=== PATIENT | male | born 1995 | race Caucasian/White ===

== ENCOUNTER → 2022-10-01 08:43 | Outpatient (CLI) | payer OTHER, SELFPAY ==
--- NOTE | 2022-10-01 | DI.ECHO.S_ITS ---
[facility] +---------+ : : [address] : [place] : : : : [id number] : : : : Phone: [phone]---------+ Echocardiogram Report + + :Name: SCOTT CHARLES Study Date: 10/01/2022 Height: 76 in : :[facility] ReadingLocation: Weight: 260 lb : : Gender: Male BSA: 2.5 m2 : :: 1995 Age: 26 yrs BP: 167/95 mmHg: :Reason For Study: Aortic Valve Disorder : :Ordering Physician: Lloyd, : :Vee Performed By: Inna Fermin : :Referring: VEE RANDALL : + + Interpretation Summary 1) Normal left ventricular thickness, size, wall motion, and systolic function (EF 55-60%). 2) Upper normal right ventricular size with normal function. 3) No significant valvular abnormalities. 4) No prior Echo available for comparison. Procedure: A two-dimensional transthoracic echocardiogram with color flow and Doppler was performed. The study quality was technically adequate. There is no prior echocardiogram noted for this patient. The patient was in normal sinus rhythm during the exam. Left Ventricle: The left ventricle is normal in size and wall thickness. The ejection fraction is estimated to be 55-60%. Left ventricular systolic function appears normal without focal wall motion abnormalities. Diastolic parameters suggest probable normal left ventricular diastolic function and normal filling pressures. Right Ventricle: The right ventricle is at the upper limits of normal in size. The right ventricular systolic function is normal. Atria: The left atrial size is normal. Right atrial size is normal. There is no Doppler evidence for an interatrial shunt. Mitral Valve: The mitral valve is normal. There is no mitral valve stenosis. There is no mitral regurgitation noted. Aortic Valve: The aortic valve is trileaflet. The aortic valve opens well. There is no aortic valve stenosis. The peak aortic velocity is 1.37 m/sec. The aortic valve mean gradient is 4 mmHg. No aortic regurgitation is present. Tricuspid Valve: The tricuspid valve is normal. There is no tricuspid stenosis. There is trace tricuspid regurgitation. Pulmonic Valve: The pulmonic valve leaflets are thin and pliable; valve motion is normal. There is no pulmonic valvular stenosis. There is no pulmonic valvular regurgitation. Great Vessels: The aortic root is normal size. The ascending aorta is normal in size. The pulmonary artery is normal size. The IVC is of normal diameter and collapses greater than 50% with a sniff. This suggests a low right atrial pressure of 3 mm Hg. Pericardium/ Pleura There is no pericardial effusion. There is no pleural effusion. MMode/2D Measurements & Calculations LVIDd: 5.3 cm LVOT diam: 2.3 cm LVIDs: 3.4 cm Ao root diam: 3.0 cm FS: 35.8 % asc Aorta Diam: 3.0 cm IVSd: 1.1 cm LVPWd: 0.90 cm LV bobby. diameter/BSA (cm/m^2): 2.1 LV sys. diameter/BSA (cm/m^2): 1.4 LA A2 area: 18.2 cm2 RA long axis: 4.9 cm LA A4 area: 12.5 cm2 RA area: 15.1 cm2 LA length (vol): 5.1 cm RA vol: 40.0 ml LA vol: 38.2 ml RA : 16.2 ml/m2 LA vol index: 15.4 ml/m2 RVD1 (basal): 3.9 cm LVLs ap4: 7.2 cm LVLd ap2: 8.4 cm TAPSE_phl: 1.9 cm LVLs ap2: 7.4 cm Doppler Measurements & Calculations Ao V2 max: 137.0 cm/sec LVOT Max Artem: 106.0 cm/sec Ao V2 mean: 101.0 cm/sec LV V1 max P.5 mmHg Ao max P.0 mmHg LV V1 VTI: 22.3 cm Ao mean P.0 mmHg MELBA(I,D): 3.3 cm2 Ao V2 VTI: 27.8 cm MELBA(V,D): 3.2 cm2 sev ratio: 0.80 MELBA indexed to BSA (cm^2/m^2): 1.3 MV E max artem: 75.0 cm/sec PA V2 max: 139.0 cm/sec MV A max artem: 41.6 cm/sec PA V2 mean: 103.0 cm/sec MV E/A: 1.8 PA mean P.0 mmHg Med Peak E' Artem: 9.5 cm/sec PA pr(Accel): 21.9 mmHg E/E' med: 7.9 Lat Peak E' Artem: 17.7 cm/sec E/E' lat: 4.2 E/e' average: 6.1 MV dec time: 0.19 sec SV(LVOT): 92.7 ml AV VR_phl: 0.77 MELBA(VTI)/BSA_phl: 1.3 MV P1/2t-pr_phl: 57.0 msec Reading Physician:02:09 PM
== END ==
PROVIDERS: Family Provider Family Medicine; PCP Internal Medicine; Referring Provider Internal Medicine; Visit Provider Internal Medicine
DX: I35.9 Nonrheumatic aortic valve disorder, unspecified (principal)
CPT/HCPCS: 93306